=== PATIENT | male | born 1990 | race African-American/Black ===

== ENCOUNTER 2019-12-12 10:54 | Emergency (ER) | payer MEDICAID, OTHER ==
[~2019-12-12] VITALS: Ht 180.3 cm; Wt 65.8 kg
[2019-12-12 11:04] VITALS: BP 123/80
[2019-12-12] MEDS ORDERED: cefTRIAXone SOD 1,000 MG VL IM ONE (11:30)
[2019-12-12] MEDS ORDERED: methylPREDNISolone SOD SUCC 125 MG/2 ML VL IM ONE (11:30)
== END 2019-12-12 12:03 | disposition home or self-care (01) ==
LOC: ER 10:54
DX: J03.90 Acute tonsillitis, unspecified (principal); L04.0 Acute lymphadenitis of face, head and neck
CPT/HCPCS: 96372; 99284; J0696; J2930

== ENCOUNTER 2020-04-05 13:22 | Emergency (ER) | payer SELFPAY ==
[~2020-04-05] VITALS: Ht 180.3 cm; Wt 65.8 kg
[2020-04-05 13:35] VITALS: BP 142/80
== END 2020-04-05 14:50 | disposition left against medical advice (07) ==
LOC: ER 13:22
DX: B34.9 Viral infection, unspecified (principal)